=== PATIENT | male | born 1960 | race African-American/Black ===

== ENCOUNTER → 2018-02-28 | Outpatient (CLI) | payer BC ==
[2018-03-01] MEDS: REGADENOSON 0.4 MG/5 ML DISP.SYRIN. IV (09:23)
== END | disposition home or self-care (01) ==
LOC: NM 07:27
DX: I36.1 Nonrheumatic tricuspid (valve) insufficiency (principal); I51.7 Cardiomegaly
CPT/HCPCS: 78452; 93017; 93306; 96374; 96375; 96376; J2785

== ENCOUNTER → 2021-09-23 | Outpatient (CLI) | payer BC ==
--- NOTE | 2021-09-23 14:55 | KCIC ---
EXAM: Renal sonogram. HISTORY: Decreased renal function. TECHNIQUE: Sonographic imaging of the kidneys and bladder was performed. COMPARISON: None. FINDINGS: The kidneys are normal in size. There is no solid or cystic renal lesion. There is no hydro nephrosis. The bladder is unremarkable. IMPRESSION: Unremarkable renal sonogram. Electronically signed by: Ruth Mayen MD (09/23/2021 2:52 PM) [id number]
== END ==
LOC: KCIC US 14:27
PROVIDERS: ATTEND Family Medicine
DX: N28.9 Disorder of kidney and ureter, unspecified (principal)
CPT/HCPCS: 76770